=== PATIENT | female | born 1990 | race Two or more races ===

== ENCOUNTER 2023-07-01 20:10 | Inpatient (IN) | payer BC, OTHER ==
[~2023-07-01] VITALS: Ht 154.9 cm; Wt 70.5 kg
[2023-07-01] MEDS: DICYCLOMINE HCL (10MG/ML) 2 ML AMPULE IM ONE (21:01)
[2023-07-01 21:02] LABS: Basophils # (auto) 0.1 10 ^3/uL (0-0.2); Basophils % (auto) 0.6 % (0.0-2.0); Eosinophils # (auto) 0.2 10 ^3/uL (0-0.8); Eosinophils % (auto) 2.4 % (0.0-7.0); Hematocrit 40.6 % (36.0-46.0); Hemoglobin 13.8 g/dL (12.2-16.2); Lymphocytes # (auto) 3.1 10 ^3/uL (0.4-5.4); Lymphocytes % (auto) 30.8 % (10.0-50.0); Mean Corpuscular Hemoglobin 29.5 pg (28.0-32.0); Mean Corpuscular Hgb Conc. 34.1 g/dL (32.0-36.0); Mean Corpuscular Volume 86.5 fL (80.0-100.0); Monocytes # (auto) 0.6 10 ^3/uL (0-1.3); Monocytes % (auto) 5.9 % (0.0-12.0); Neutrophils # (auto) 6.1 10 ^3/uL (1.6-8.6); Neutrophils % (auto) 60.3 % (37.0-80.0); Nucleated Red Blood Cells % 0.1 %; Red Blood Cells 4.69 10^6/uL (4.0-5.20); Red Cell Distribution Width 12.5 % (11.8-14.3); White Blood Cell 10.1 10^3/uL (4.4-10.8)
[2023-07-01] MEDS: LIDOCAINE VISCOUS 2% 15ML UD PO ONE (21:02)
[2023-07-01] MEDS: ONDANSETRON HCL 4 MG/2 ML VIAL IM ONE (21:02)
[2023-07-01] MEDS: MAALOX PLUS or MAALOX 30 ML PO ONE (21:02)
[2023-07-01 21:09] LABS: Chloride 104 mmol/L (98-107); Potassium 3.6 mmol/L (3.5-5.1); Sodium 136 mmol/L (136-145)
[2023-07-01 21:10] LABS: Anion Gap 6 (5-15); Carbon Dioxide 26 mmol/L (20-30)
[2023-07-01 21:15] LABS: Glucose 99 mg/dL (74-106)
[2023-07-01 21:16] LABS: BUN/Creatinine Ratio 12.8 (10.0-20.0); Blood Urea Nitrogen 10 mg/dL (9-23); Lipase 59 U/L (12-53)
[2023-07-01] MEDS: HYDROmorphone HCL 2 MG/ML VL/or syr IM ONE (22:30)
[2023-07-01 23:42] LABS: Urine Bacteria FEW /hpf (None Seen); Urine Blood Negative /uL (Negative); Urine Clarity Ex.Turbid (Clear); Urine Color Colorless (Yellow); Urine Mucus FEW (None Seen); Urine Protein, UAD TRACE (Negative); Urine Urobilinogen Normal (Negative); Urine WBC 3 /hpf (0 - 5)
[2023-07-02] MEDS ORDERED: CALC100023 PO (01:48)
[2023-07-02] MEDS ORDERED: ZOFR4T PO (01:48)
[2023-07-02] MEDS ORDERED: HYDR-4902 PO (01:48)
[2023-07-02 05:25] VITALS: PULSE 88; RESP 16; O2SAT 99
[2023-07-02] MEDS: FAMOTIDINE (10MG/ML) 2ML VL IV ONE (05:51)
[2023-07-02] MEDS: SODIUM CHLORIDE 0.9% 1,000 ML IV ONE (05:51)
[2023-07-02] MEDS ORDERED: NITROGLYCERIN 0.4 MG SL TAB SL PRN (06:45)
[2023-07-02] MEDS ORDERED: MORPHINE SULFATE INJ 2 MG/ml SYRG IV PRN (06:45)
[2023-07-02] MEDS ORDERED: HYDROmorphone HCL 2 MG/ML VL/or syr IV PRN (06:45)
[2023-07-02] MEDS ORDERED: DOCUSATE SOD 100 MG CAP PO PRN (06:45)
[2023-07-02] MEDS ORDERED: ACETAMINOPHEN 325 MG TAB PO PRN (06:45)
[2023-07-02] MEDS ORDERED: HYDROcodone-ACET 5/325MG TAB PO PRN (06:45)
[2023-07-02] MEDS: MORPHINE SULFATE 4 MG/ML SYR/VIAL IV ONE (06:48)
[2023-07-02] MEDS: ONDANSETRON HCL 4 MG/2 ML VIAL IV ONE (06:48)
[2023-07-02] MEDS: D5W/SOD CHLO 0.9% 1,000 ML IV SCH (07:00)
[2023-07-02 07:30] VITALS: PULSE 88; RESP 16; O2SAT 98
[2023-07-02] MEDS: ONDANSETRON HCL 4 MG/2 ML VIAL IV PRN (09:43)
[2023-07-02 13:22] VITALS: BP 130/88; PULSE 84; RESP 18; TEMP 98.2; O2SAT 98
[2023-07-02] MEDS ORDERED: MONT5CHW12 PO (14:06)
[2023-07-02] MEDS ORDERED: CETI-176 PO (14:07)
[2023-07-02] MEDS ORDERED: CHOL500046 PO (14:07)
[2023-07-02] MEDS ORDERED: PHYT100T PO (14:08)
[2023-07-02] MEDS ORDERED: ALBUAER3 IN (14:09)
[2023-07-02] MEDS ORDERED: FLUT1SPR5 (14:09)
[2023-07-02 17:09] VITALS: BP 144/81; PULSE 97; RESP 18; TEMP 97.9; O2SAT 99
[2023-07-02] MEDS: cefTRIAXone 1GM/50ML D5W 50 ML IV ONE (17:15)
[2023-07-02 20:00] VITALS: PULSE 76; RESP 17
[2023-07-02 20:00] LABS: Urine Amorphous Crystal FEW /hpf (None Seen); Urine Bacteria FEW /hpf (None Seen); Urine Blood Negative /uL (Negative); Urine Clarity Turbid (Clear); Urine Color Colorless (Yellow); Urine Protein, UAD Negative (Negative); Urine Specific Gravity 1.014 (1.001-1.035); Urine Urobilinogen Normal (Negative); Urine WBC 8 /hpf (0 - 5); Urine pH 7.5 (5.0-9.0)
[2023-07-02 21:00] VITALS: BP 120/78; PULSE 76; RESP 16; TEMP 98.4; O2SAT 98
[2023-07-03 01:00] VITALS: BP 135/91; PULSE 87; RESP 16; TEMP 97.3; O2SAT 100
[2023-07-03 05:00] VITALS: BP 119/85; PULSE 73; RESP 16; TEMP 97.3; O2SAT 99
[2023-07-03 06:59] LABS: Basophils # (auto) 0 10 ^3/uL (0-0.2); Basophils % (auto) 0.4 % (0.0-2.0); Eosinophils # (auto) 0.3 10 ^3/uL (0-0.8); Eosinophils % (auto) 5.2 % (0.0-7.0); Hematocrit 39.5 % (36.0-46.0); Hemoglobin 13.2 g/dL (12.2-16.2); Lymphocytes # (auto) 1.8 10 ^3/uL (0.4-5.4); Lymphocytes % (auto) 31.8 % (10.0-50.0); Mean Corpuscular Hemoglobin 29.7 pg (28.0-32.0); Mean Corpuscular Hgb Conc. 33.5 g/dL (32.0-36.0); Mean Corpuscular Volume 88.6 fL (80.0-100.0); Monocytes # (auto) 0.3 10 ^3/uL (0-1.3); Monocytes % (auto) 5.6 % (0.0-12.0); Neutrophils # (auto) 3.3 10 ^3/uL (1.6-8.6); Red Blood Cells 4.46 10^6/uL (4.0-5.20); Red Cell Distribution Width 12.8 % (11.8-14.3); White Blood Cell 5.7 10^3/uL (4.4-10.8)
[2023-07-03 07:21] LABS: Alanine Aminotransferase 131 U/L (7-40); Albumin 4.1 g/dL (3.2-4.8); Alkaline Phosphatase 82 U/L (46-116); Anion Gap 4 (5-15); Aspartate Aminotransferase 53 U/L (13-40); BUN/Creatinine Ratio 7.8 (10.0-20.0); Blood Urea Nitrogen < 5 mg/dL (9-23); Calcium 9.3 mg/dL (8.7-10.4); Carbon Dioxide 24 mmol/L (20-30); Chloride 110 mmol/L (98-107); Glucose 100 mg/dL (74-106); Lipase 51 U/L (12-53); Potassium 4.7 mmol/L (3.5-5.1); Sodium 138 mmol/L (136-145)
[2023-07-03 07:22] LABS: Bilirubin, Total 0.3 mg/dL (0.2-1.0); Total Protein 6.7 g/dL (5.7-8.2)
[2023-07-03] MEDS: cefTRIAXone 1GM/50ML D5W 50 ML IV SCH (08:18)
[2023-07-03] MEDS: FAMOTIDINE (10MG/ML) 2ML VL IV SCH (08:48)
[2023-07-03 09:05] VITALS: BP 129/61; PULSE 95; RESP 20; TEMP 98.1; O2SAT 97
[2023-07-03 13:18] VITALS: BP 144/92; PULSE 86; RESP 21; TEMP 98.3; O2SAT 98
== END 2023-07-03 15:35 | disposition home or self-care (01) | DRG 391 ==
LOC: ER 20:10 → OVERFLOW 07-02 06:43 → WEST WING 07-02 12:15
PROVIDERS: ADMIT Nurse Practitioner Family; ATTEND Nurse Practitioner Family
DX: K52.9 Noninfective gastroenteritis and colitis, unspecified (principal); K85.90 Acute pancreatitis without necrosis or infection, unspecified; E66.9 Obesity, unspecified; Z68.29 Body mass index [BMI] 29.0-29.9, adult
CPT/HCPCS: 36415; 74176; 80048; 80053; 81001; 83690; 84702; 85025; 87086; G0378; J2405; J3490